=== PATIENT | female | born 1950 | race Caucasian/White ===

== ENCOUNTER 2017-04-03 13:16 | Outpatient (CLI) | payer MEDICARE, OTHER | END 2017-04-03 23:59 | disposition home or self-care (01) | LOC: WOU 13:16 | PROVIDERS: ATTEND Specialist | DX: I87.311 Chronic venous hypertension (idiopathic) with ulcer of right lower extremity (principal); L97.819 Non-pressure chronic ulcer of other part of right lower leg with unspecified severity; Z87.891 Personal history of nicotine dependence; G89.4 Chronic pain syndrome; R60.0 Localized edema | CPT/HCPCS: 11042; 87070; 87077; 87186; 93922; A6253; A6402 ==

== ENCOUNTER 2017-04-10 13:15 | Outpatient (CLI) | payer MEDICARE, OTHER | END 2017-04-10 23:59 | disposition home or self-care (01) | LOC: WOU 13:15 | PROVIDERS: ATTEND Specialist | DX: I87.311 Chronic venous hypertension (idiopathic) with ulcer of right lower extremity (principal); L97.811 Non-pressure chronic ulcer of other part of right lower leg limited to breakdown of skin; G89.4 Chronic pain syndrome; Z96.652 Presence of left artificial knee joint; B95.8 Unspecified staphylococcus as the cause of diseases classified elsewhere; B96.20 Unspecified Escherichia coli [E. coli] as the cause of diseases classified elsewhere; Z87.891 Personal history of nicotine dependence | CPT/HCPCS: 11042; A6253; A6402 ==

== ENCOUNTER 2017-04-16 09:22 | Outpatient (CLI) | payer MEDICARE, OTHER | END 2017-04-16 23:59 | disposition home or self-care (01) | LOC: WOU 09:22 | PROVIDERS: ATTEND Specialist | DX: I87.2 Venous insufficiency (chronic) (peripheral) (principal); L97.909 Non-pressure chronic ulcer of unspecified part of unspecified lower leg with unspecified severity | CPT/HCPCS: 93970-TC ==

== ENCOUNTER 2017-04-24 11:10 | Outpatient (CLI) | payer MEDICARE, OTHER | END 2017-04-24 23:59 | disposition home or self-care (01) | LOC: WOU 11:10 | PROVIDERS: ATTEND Specialist | DX: I87.311 Chronic venous hypertension (idiopathic) with ulcer of right lower extremity (principal); L97.911 Non-pressure chronic ulcer of unspecified part of right lower leg limited to breakdown of skin; S80.822A Blister (nonthermal), left lower leg, initial encounter; X58.XXXA Exposure to other specified factors, initial encounter; Y92.89 Other specified places as the place of occurrence of the external cause; M79.7 Fibromyalgia; G89.4 Chronic pain syndrome; Z87.891 Personal history of nicotine dependence; Z96.652 Presence of left artificial knee joint; G62.9 Polyneuropathy, unspecified | CPT/HCPCS: 11042; A6402 ==

== ENCOUNTER 2017-05-08 11:17 | Outpatient (CLI) | payer MEDICARE, OTHER | END 2017-05-08 23:59 | disposition home or self-care (01) | LOC: WOU 11:17 | PROVIDERS: ATTEND Specialist | DX: I87.311 Chronic venous hypertension (idiopathic) with ulcer of right lower extremity (principal); L97.811 Non-pressure chronic ulcer of other part of right lower leg limited to breakdown of skin; M79.7 Fibromyalgia; G89.4 Chronic pain syndrome; G62.9 Polyneuropathy, unspecified; Z87.891 Personal history of nicotine dependence; Z96.652 Presence of left artificial knee joint; Z79.891 Long term (current) use of opiate analgesic | CPT/HCPCS: 11042; A6402; J3490 ==

== ENCOUNTER 2017-05-15 11:15 | Outpatient (CLI) | payer MEDICARE, OTHER ==
[2017-05-15 13:03] LABS: BASOPHILS # (AUTO) 0.1 /CMM (0.0-0.2); BASOPHILS % (AUTO) 0.6 % (0.0-2.0); EOSINOPHILS # (AUTO) 0.4 /CMM (0.0-0.7); EOSINOPHILS % (AUTO) 3.9 % (0.0-6.0); HEMATOCRIT 33 % (33-45); HEMOGLOBIN 10.9 g/dL (11.5-14.8); LYMPHOCYTES # (AUTO) 2.2 /CMM (0.8-4.8); LYMPHOCYTES % (AUTO) 23.5 % (20.0-44.0); MEAN CORPUSCULAR HEMOGLOBIN 27 PG (26.0-33.0); MEAN CORPUSCULAR HGB CONC 33 g/dl (31.0-36.0); MEAN CORPUSCULAR VOLUME 83 fL (82-100); MONOCYTES # (AUTO) 0.7 /CMM (0.1-1.30); MONOCYTES % (AUTO) 7.1 % (2.0-12.0); NEUTROPHILS % (AUTO) 64.9 % (43.0-81.0); PLATELET COUNT (AUTO) 338 /CMM (150-450); RDW COEFFICIENT OF VARIATION 12.7 (11.5-15.0); RED BLOOD CELL COUNT(AUTO) 3.98 MIL/uL (4.0-5.2); WHITE BLOOD COUNT (AUTO) 9.2 K/uL (4.3-11.0)
[2017-05-15 13:20] LABS: RHEUMATOID FACTOR SCREEN POSITIVE (NEG)
[2017-05-16 10:14] LABS: *ANA ANTI-CENTROMERE B AB <0.2 AI (0.0-0.9); *ANA ANTI-DNA(DS) AB, QN <1 IU/mL (0-9); *ANA ANTI-JO-1 <0.2 AI (0.0-0.9); *ANA ANTICHROMATIN ANTIBODY <0.2 AI (0.0-0.9); *ANA RNP ANTIBODIES <0.2 AI (0.0-0.9); *ANA SJOGREN'S ANTI-SS-A <0.2 AI (0.0-0.9); *ANA SJOGREN'S ANTI-SS-B <0.2 AI (0.0-0.9); *ANAANTI-SCLERODERMA-70 AB <0.2 AI (0.0-0.9); *ANASMITH AB <0.2 AI (0.0-0.9)
[2017-05-17 12:15] LABS: *ANCANTIMYELOPEROXIDASE (MPO) <9.0 U/mL (0.0-9.0); *ANCANTIPROTEINASE 3 (PR-3) AB <3.5 U/mL (0.0-3.5)
[2017-05-17 13:10] LABS: *ANCA ATYPICAL p-ANCA <1:20 titer (Neg:<1:20); *ANCA CYTOPLASMIC (C-ANCA) <1:20 titer (Neg:<1:20); *ANCA PERINUCLEAR (P-ANCA) <1:20 titer (Neg:<1:20)
== END 2017-05-15 23:59 | disposition home health service (06) ==
LOC: WOU 11:15
PROVIDERS: ATTEND Specialist
DX: I87.311 Chronic venous hypertension (idiopathic) with ulcer of right lower extremity (principal); L97.821 Non-pressure chronic ulcer of other part of left lower leg limited to breakdown of skin; L97.811 Non-pressure chronic ulcer of other part of right lower leg limited to breakdown of skin; G89.4 Chronic pain syndrome; R60.0 Localized edema; M79.7 Fibromyalgia; Z87.891 Personal history of nicotine dependence; Z96.652 Presence of left artificial knee joint; Z80.9 Family history of malignant neoplasm, unspecified; Z82.49 Family history of ischemic heart disease and other diseases of the circulatory system
CPT/HCPCS: 36415; 83520 ×2; 84443; 85025; 85652; 86140; 86225; 86235 ×8; 86256 ×3; 86431 ×2; 97597; A6402

== ENCOUNTER 2017-05-29 10:57 | Outpatient (CLI) | payer MEDICARE, OTHER | END 2017-05-29 23:59 | disposition home or self-care (01) | LOC: WOU 10:57 | PROVIDERS: ATTEND Specialist | DX: I87.311 Chronic venous hypertension (idiopathic) with ulcer of right lower extremity (principal); L97.821 Non-pressure chronic ulcer of other part of left lower leg limited to breakdown of skin; L97.811 Non-pressure chronic ulcer of other part of right lower leg limited to breakdown of skin; R60.0 Localized edema; G89.4 Chronic pain syndrome; M79.7 Fibromyalgia; L95.8 Other vasculitis limited to the skin; I10 Essential (primary) hypertension; Z87.891 Personal history of nicotine dependence; Z82.61 Family history of arthritis; Z82.49 Family history of ischemic heart disease and other diseases of the circulatory system | CPT/HCPCS: A6402 ×2; G0463 ==

== ENCOUNTER 2017-06-19 11:35 | Outpatient (CLI) | payer MEDICARE, OTHER | END 2017-06-19 23:59 | disposition home health service (06) | LOC: WOU 11:35 | PROVIDERS: ATTEND Specialist | DX: I87.313 Chronic venous hypertension (idiopathic) with ulcer of bilateral lower extremity (principal); L97.821 Non-pressure chronic ulcer of other part of left lower leg limited to breakdown of skin; L97.811 Non-pressure chronic ulcer of other part of right lower leg limited to breakdown of skin; L95.8 Other vasculitis limited to the skin; L97.321 Non-pressure chronic ulcer of left ankle limited to breakdown of skin; M79.7 Fibromyalgia; G89.4 Chronic pain syndrome; R60.0 Localized edema; Z96.652 Presence of left artificial knee joint; Z87.891 Personal history of nicotine dependence; G62.9 Polyneuropathy, unspecified | CPT/HCPCS: A6402 ×3; G0463 ==

== ENCOUNTER 2017-07-03 11:12 | Outpatient (CLI) | payer MEDICARE, OTHER | END 2017-07-03 23:59 | disposition home or self-care (01) | LOC: WOU 11:12 | PROVIDERS: ATTEND Specialist | DX: I87.311 Chronic venous hypertension (idiopathic) with ulcer of right lower extremity (principal); L97.321 Non-pressure chronic ulcer of left ankle limited to breakdown of skin; L97.221 Non-pressure chronic ulcer of left calf limited to breakdown of skin; G89.4 Chronic pain syndrome; L95.8 Other vasculitis limited to the skin; M79.7 Fibromyalgia; R60.0 Localized edema; Z87.891 Personal history of nicotine dependence | CPT/HCPCS: A6197; A6253 ×2; A6402; G0463 ==

== ENCOUNTER 2017-07-17 11:15 | Outpatient (CLI) | payer MEDICARE, OTHER | END 2017-07-17 23:59 | disposition home or self-care (01) | LOC: WOU 11:15 | PROVIDERS: ATTEND Specialist | DX: I87.313 Chronic venous hypertension (idiopathic) with ulcer of bilateral lower extremity (principal); L97.821 Non-pressure chronic ulcer of other part of left lower leg limited to breakdown of skin; L97.811 Non-pressure chronic ulcer of other part of right lower leg limited to breakdown of skin; L95.8 Other vasculitis limited to the skin; R60.0 Localized edema; G89.4 Chronic pain syndrome; M79.7 Fibromyalgia; Z96.652 Presence of left artificial knee joint; Z87.891 Personal history of nicotine dependence; Z88.6 Allergy status to analgesic agent; B95.8 Unspecified staphylococcus as the cause of diseases classified elsewhere | CPT/HCPCS: A6253; A6402; G0463 ==

== ENCOUNTER 2017-07-24 14:30 | Outpatient (CLI) | payer MEDICARE, OTHER | END 2017-07-24 23:59 | disposition home or self-care (01) | DX: I87.313 Chronic venous hypertension (idiopathic) with ulcer of bilateral lower extremity (principal); L97.821 Non-pressure chronic ulcer of other part of left lower leg limited to breakdown of skin; L97.811 Non-pressure chronic ulcer of other part of right lower leg limited to breakdown of skin; L95.9 Vasculitis limited to the skin, unspecified; L97.321 Non-pressure chronic ulcer of left ankle limited to breakdown of skin; M79.7 Fibromyalgia; G89.4 Chronic pain syndrome; Z87.891 Personal history of nicotine dependence | CPT/HCPCS: 11042; 11045; A6253; A6402 ==